=== PATIENT | male | born 1985 | race Caucasian/White ===

== ENCOUNTER 2024-12-19 16:49 | Inpatient (IN) | payer MEDICAID, SELFPAY ==
[2024-12-19 16:52] VITALS: BP 121/76; PULSE 84; RESP 17; TEMP 36.8; O2SAT 97; BMI 22.1
--- NOTE | 2024-12-19 17:14 | ECG_ITS ---
[facility] [place] [facility] Date: 2024-12-19 Pat Name: Vineet Corona Department: Room: Gender: Male Ruffler: : 1985 Requested By: Anahi Castellano Order Number: [id number] Donna MD: Daylin Lynn M.D. Measurements Intervals [place] Rate: 67 P: 60 LA: 199 QRS: 57 QRSD: 82 T: 58 QT: 392 QTc: 416 Interpretive Statements SINUS RHYTHM ST ELEVATION, PROBABLY EARLY REPOLARIZATION [ST ELEVATION WITH NORMALLY INFLECTED T-WAVE] No previous ECG available for comparison Electronically Signed On 12-20-2024 21:15:30 CDT by Daylin Lynn M.D. [email or web address]
--- NOTE | 2024-12-19 17:17 | ED.C_ITS ---
HPI - Psych 2 General: Chief Complaint: Psychiatric Symptoms Stated Complaint: mhe Time Seen by Provider: 12/19/24 17:07 History of Present Illness: 39-year-old man with a history of schizo phrenia and depression who presents to the emergency room with suicidal ideations and depression. He is also having some anxiety. He feels like his medications are not working. He has no specific plan at this time. No fevers. No cough. No shortness of breath. No chest pain. No abdominal pain. No nausea or vomiting. No self-injury. Review of Systems 2 Narrative: Constitutional symptoms: Negative except as documented in HPI. Skin symptoms: Negative except as documented in HPI. Eye symptoms: Negative except as documented in HPI. ENMT symptoms: Negative except as documented in HPI. Respiratory symptoms: Negative except as documented in HPI. Cardiovascular symptoms: Negative except as documented in HPI. Gastrointestinal symptoms: Negative except as documented in HPI. Genitourinary symptoms: Negative except as documented in HPI. Musculoskeletal symptoms: Negative except as documented in HPI. Neurologic symptoms: Negative except as documented in HPI. Psychiatric symptoms: Negative except as documented in HPI. Endocrine symptoms: Negative except as documented in HPI. Physical Exam 2 Narrative: EXAM NARRATIVE: General: Alert, no acute distress. Skin: Warm, dry. Head: Normocephalic, atraumatic. Neck: Supple, trachea midline. Eye: Extraocular movements are intact. Ears, nose, mouth and throat: mucosa moist. Cardiovascular: Regular, Normal peripheral perfusion. Respiratory: Lungs are clear to auscultation, respirations are non-labored, breath sounds are equal, Symmetrical chest wall expansion. Gastrointestinal: Soft, Nontender, Non distended Musculoskeletal: Normal ROM, no deformity. Neurological: Alert and oriented, No focal neurological deficit observed. Psychiatric: Patient is pleasant. He says he has been having suicidal thoughts but he does not have a specific plan. Course 2 Vital Signs: Vital signs: Vital Signs Temperature 98.2 F 12/19/24 16:52 Pulse Rate 84 12/19/24 16:52 Respiratory Rate 17 12/19/24 16:52 Blood Pressure 121/76 12/19/24 16:52 Pulse Oximetry 97 12/19/24 16:52 [facility] - Psych Medical Decision Making Differential diagnosis: Patient with reported depression and suicidal ideation. concerns for infection, alcohol intoxication, cardiac issues or other medical problems prior to psychiatric admission. Workup: labwork, ekg ordered to evaluate the pathologies and to clear the patient medically prior to psychiatric admission Consultation: Spoke with Dr. Lisa who agrees to admission. Lab work is pending at shift change. Patient care transitioned to Dr. Quiles. Assessment and plan: Suicidal thoughts Depression Schizophrenia ? 96-hour hold was placed. -Admission to neuropsychiatric unit for continued evaluation and treatment. - All lab work was reviewed and interpreted personally by myself, the ER physician - Evaluation and treatment of this problem were appropriate in the emergency setting Lab Data 12/19/24 Unknown 12/19/24 Unknown Laboratory Results Urine Color Yellow (Yellow) 12/19/24 17:05 Urine Appearance Clear (CLEAR) 12/19/24 17:05 Urine pH 7 (5-7) 12/19/24 17:05 Ur Specific [place] 1.005 (1.005-1.030) 12/19/24 17:05 Urine Protein Neg (Negative) 12/19/24 17:05 Urine Glucose (UA) Norm (Normal) 12/19/24 17:05 Urine Ketones Negative (Negative) 12/19/24 17:05 Urine Blood Neg (Negative) 12/19/24 17:05 Urine Nitrate Negative (Negative) 12/19/24 17:05 Urine Bilirubin Neg (Negative) 12/19/24 17:05 Urine Urobilinogen Neg mg/dL (Negative) 12/19/24 17:05 Ur Leukocyte Esterase Negative (Negative) 12/19/24 17:05 Urine RBC 0-2 /hpf (0-2) 12/19/24 17:05 Urine WBC 0-5 /hpf (0-5) 12/19/24 17:05 Ur Squamous Epith Cells 0-5 /hpf (0-5) 12/19/24 17:05 Amorphous Sediment Not Reportable 12/19/24 17:05 Urine Bacteria None seen /hpf (NONE) 12/19/24 17:05 Hyaline Casts 0-4 /lpf H 12/19/24 17:05 Urine Opiates Screen Negative ng/mL (Negative) 12/19/24 17:05 Ur Barbiturates Screen Negative ng/mL (Negative) 12/19/24 17:05 Ur Phencyclidine Scrn Negative ng/mL (Negative) 12/19/24 17:05 Ur Amphetamines Screen Negative ng/mL (Negative) 12/19/24 17:05 U Benzodiazepines Scrn Negative ng/mL (Negative) 12/19/24 17:05 Urine Cocaine Screen Negative ng/mL (Negative) 12/19/24 17:05 U Marijuana (THC) Screen Negative ng/mL (Negative) 12/19/24 17:05 No radiology studies performed this visit Discharge Plan Discharge Patient Disposition: Admitted As Inpatient Admit Provider: Kedar Lisa Clinical Impression: Suicidal ideation, Depression, Chronic schizophrenia Condition: Stable Coding Level of Care Code ED Gastroenterologist for Richie Guerrero
[2024-12-19 17:19] LABS: Basophils % 0.5 %; Eosinophils # 0.1 10^3/uL (0.0-0.8); Eosinophils % 1.3 %; Hematocrit 43.7 % (37-53); Lymphocytes # 2.1 10^3/uL (0.8-4.8); Lymphocytes % 27.8 %; Mean Platelet Volume 11.5 fL (7.4-10.4); Monocytes # 0.4 10^3/uL (0.2-0.9); Monocytes % 5.6 %; Neutrophils # 4.95 10^3/uL (1.8-7.7); Neutrophils % 64.7 %; Nucleated Red Blood Cells % 0 %; Platelet Count 166 10^3/cmm (157-399); Red Cell Distribution Width 11.6 % (12.1-15.1); White Blood Count 7.66 10^3/uL (3.29-11.43)
[2024-12-19 17:36] LABS: Acetaminophen < 5.0 ug/mL (10-30); Alanine Aminotransferase 15 U/L (0-41); Albumin Level 4.2 g/dL (3.5-5.2); Alcohol Level < 10 mg/dL (0-10); Alkaline Phosphatase 97 U/L (40-130); Anion Gap 16.7 (5-19); Aspartate Amino Transferase 21 U/L (0-40); Blood Urea Nitrogen 10 mg/dL (6-20); Calcium 8.8 mg/dL (8.5-10.5); Carbon Dioxide 21 mmol/L (22-29); Chloride 103 mmol/L (98-107); Globulin 2.9 g/dL (1.3-4.6); Glomerular Filtration Rate 125.5 mL/min (90-130); Glucose 97 mg/dL (65-115); Osmolality Calculated 283 mOsm/kg (285-295); Potassium 3.7 mmol/L (3.5-5.1); Salicylate < 0.3 mg/dL (3-10); Sodium 137 mmol/L (136-145); Total Bilirubin 0.3 mg/dL (0.15-1.2); Total Protein 7.1 g/dL (6.6-8.7)
[2024-12-19 17:44] LABS: Thyroid Stimulating Hormone 1.24 uIU/mL (0.27-4.20)
[2024-12-19 17:52] LABS: Bilirubin Urine Neg (Negative); Blood Urine Neg (Negative); Glucose Urine UA Norm (Normal); Ketones Urine Negative (Negative); Leukocyte Esterase Urine Negative (Negative); Nitrate Urine Negative (Negative); Protein Urine Neg (Negative); Specific Gravity, Urine 1.005 (1.005-1.030); Urine Appearance Clear (CLEAR); Urine Color Yellow (Yellow); Urobilinogen Urine Neg (Negative); pH Urine 7 (5-7)
[2024-12-19 17:55] LABS: Bacteria Urine None Seen /hpf; Hyaline Casts Urine 0-4 /lpf; RBC Urine 0-2 /hpf (0-2); Squamous Epithelial Cell Urine 0-5 /hpf (0-5); WBC Urine 0-5 /hpf (0-5)
[2024-12-19 18:00] LABS: Amphetamines Screen Urine Negative (Negative); Barbiturates Screen Urine Negative (Negative); Benzodiazepines Screen Urine Negative (Negative); Cocaine Screen Urine Negative (Negative); Opiate Screen Urine Negative (Negative); PCP Screen Urine Negative (Negative); THC Screen Urine Negative (Negative)
--- NOTE | 2024-12-19 18:23 | PC.NURSE ---
pt report given to NPU charge, states to wait for shift change and awake overnight monitor to call when ready for patient. no further questions at end of report.
--- NOTE | 2024-12-19 18:46 | PC.NURSE ---
patient placed on a 96 hour hold, rights read to patient in room ER 9. Patient verbalized understanding .
[2024-12-19 19:40] VITALS: BP 129/83; PULSE 93; RESP 17; TEMP 36.7; O2SAT 98
[2024-12-19 20:49] VITALS: BP 129/83; PULSE 93; RESP 17; TEMP 36.7; O2SAT 98
[2024-12-19] MEDS: quetiapine 300 mg Tablet PO (21:17)
[2024-12-19] MEDS: prazosin 1 mg Capsule 6 MG PO (21:17)
[2024-12-20 06:00] VITALS: BP 106/65; PULSE 70; RESP 18; TEMP 36.4; O2SAT 95; BMI 22.6
--- NOTE | 2024-12-20 12:11 | PC.NURSE ---
Pt came up to nurses station and stated to this nurse I feel like this place is not helping me heal at all , pt was educated that he needed to relay these concerns to the doctor when he rounds and I would also relay this message to the doctor as well.
[2024-12-20 14:00] VITALS: BP 110/72; PULSE 78; RESP 16; TEMP 36.4; O2SAT 97
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
[2024-12-20] MEDS: fluoxetine 10 mg Capsule PO (15:32)
[2024-12-20] MEDS: prazosin 1 mg Capsule 6 MG PO (20:26)
[2024-12-20] MEDS: quetiapine 300 mg Tablet PO (20:26)
[2024-12-20 21:54] VITALS: BP 95/62; PULSE 80; RESP 17; O2SAT 96
[2024-12-21 06:00] VITALS: BP 121/72; PULSE 68; RESP 18; TEMP 37.1; O2SAT 99
[2024-12-21] MEDS: fluoxetine 10 mg Capsule PO (08:06)
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
[2024-12-21 12:16] VITALS: BP 121/72; PULSE 68; RESP 18; TEMP 37.1; O2SAT 99
== END 2024-12-21 14:47 | disposition home or self-care (01) | DRG 885 ==
LOC: ER 17:24 → NP 18:08
PROVIDERS: Admitting Provider Psychiatry & Neurology Psychiatry; Emergency Provider Emergency Medicine; Visit Provider Psychiatry & Neurology Psychiatry
DX: F25.1 Schizoaffective disorder, depressive type (principal); R45.851 Suicidal ideations; Z81.8 Family history of other mental and behavioral disorders; Z81.1 Family history of alcohol abuse and dependence
CPT/HCPCS: 80053; 80306; 80307; 81001; 84443; 85025; 93005; 97150; 97165; 99285; J9999